=== PATIENT | male | born 1955 | race Hispanic/Latino ===

== ENCOUNTER 2024-07-30 09:47 | Day surgery (SDC) | payer MEDICARE ==
[2024-07-30] VITALS (11 sets, daily range): BP systolic 108–153; BP diastolic 56–75; PULSE 59–71; RESP 15–17; TEMP 97.1–97.6
[~2024-07-30] VITALS: Ht 162.6 cm; Wt 67.1 kg
[2024-07-30] MEDS: 0.9%NACL 1000ML 1,000 ML IV ONE (12:54)
[2024-07-30] MEDS ORDERED: FURO20TA4 PO (13:07)
[2024-07-30] MEDS ORDERED: FOLI1 PO (13:07)
[2024-07-30] MEDS ORDERED: METF-446 PO (13:07)
[2024-07-30] MEDS ORDERED: RIFA550T PO (13:07)
[2024-07-30] MEDS ORDERED: PANT40TA54 PO (13:07)
[2024-07-30] MEDS ORDERED: ATOR40TA69 PO (13:07)
[2024-07-30] MEDS ORDERED: LACT10SO76 PO (13:07)
[2024-07-30] MEDS ORDERED: PIOG30TA70 PO (13:07)
[2024-07-30] MEDS ORDERED: TAMS-1 PO (13:07)
[2024-07-30] MEDS ORDERED: SPIR50TA PO (13:07)
[2024-07-30] MEDS ORDERED: FENTanyl CITRate PF 50 MCG/1 ML 2ML VIAL ONE (13:14)
[2024-07-30] MEDS ORDERED: LIDOCAINE HCL 1% 20 ML VIAL ONE (13:15)
[2024-07-30] MEDS ORDERED: proPOFol 10 MG/ML 20ML VIAL IV ONE ×2 (13:15→13:24)
== END 2024-07-30 14:40 | disposition home or self-care (01) ==
LOC: DAH 09:47 → ENDO 09:47
PROVIDERS: ATTEND Internal Medicine Gastroenterology
DX: K74.60 Unspecified cirrhosis of liver (principal); I85.10 Secondary esophageal varices without bleeding; K31.89 Other diseases of stomach and duodenum; K76.6 Portal hypertension; E11.9 Type 2 diabetes mellitus without complications; K21.9 Gastro-esophageal reflux disease without esophagitis; E66.01 Morbid (severe) obesity due to excess calories; K57.30 Diverticulosis of large intestine without perforation or abscess without bleeding; K80.20 Calculus of gallbladder without cholecystitis without obstruction; Z79.899 Other long term (current) drug therapy
CPT/HCPCS: 43244; J3010; J7030 ×2; J2704 ×2; A4620; A4215 ×2; A4223; A4657; A7002; A4222; A4221; A4663; A4606; J3490

== ENCOUNTER 2024-10-28 08:00 | Day surgery (SDC) | payer MEDICARE, MEDICAID ==
[~2024-10-28] VITALS: Ht 162.6 cm; Wt 70.3 kg
[2024-10-28] VITALS (10 sets, daily range): BP systolic 100–131; BP diastolic 52–69; PULSE 55–66; RESP 15–17; TEMP 97–97.7
[~2024-10-28 08:00] MED LIST: ATOR40TA69 PO; FOLI1 PO; FURO20TA4 PO; LACT10SO76 PO; METF-446 PO; PANT40TA54 PO; RIFA550T PO; SPIR50TA PO; TAMS-55 PO
[2024-10-28] MEDS ORDERED: PANT40TA54 PO (09:47)
[2024-10-28] MEDS: 0.9%NACL 1000ML 1,000 ML IV ONE (09:53)
[2024-10-28] MEDS: DEXTROSE 50%-WATER 50 ML DISP.SYRIN IV ONE (09:54)
[2024-10-28] MEDS ORDERED: proPOFol 10 MG/ML 20ML VIAL IV ONE (11:53)
== END 2024-10-28 12:50 | disposition home or self-care (01) ==
LOC: ENDO 08:00 → DAH 08:00 → ENDO 12:50
PROVIDERS: ATTEND Internal Medicine Gastroenterology
DX: I85.00 Esophageal varices without bleeding (principal); K22.89 Other specified disease of esophagus; K76.6 Portal hypertension; K31.89 Other diseases of stomach and duodenum; K74.60 Unspecified cirrhosis of liver; E11.9 Type 2 diabetes mellitus without complications; E78.5 Hyperlipidemia, unspecified; Z79.899 Other long term (current) drug therapy
CPT/HCPCS: 82948 ×3; 43244; J7030; J7070; J2704; A4620; A4215 ×2; A4223; A4222; A4221; A4663; A4606; J3490

== ENCOUNTER 2024-12-08 08:06 | Day surgery (SDC) | payer MEDICARE, MEDICAID ==
[~2024-12-08] VITALS: Ht 162.6 cm; Wt 69.4 kg
[2024-12-08] VITALS (12 sets, daily range): BP systolic 89–127; BP diastolic 48–61; PULSE 58–64; RESP 14–17; TEMP 97.6–98.1
[~2024-12-08 08:06] MED LIST changes: -ATOR40TA69 PO; -FOLI1 PO
[2024-12-08] MEDS ORDERED: ERGO500093 PO (09:34)
[2024-12-08] MEDS ORDERED: FOLI0.8C PO (09:34)
[2024-12-08] MEDS: 0.9%NACL 1000ML 1,000 ML IV ONE (09:36)
[2024-12-08] MEDS ORDERED: LIDOCAINE HCL 1% 20 ML VIAL ONE (10:25)
== END 2024-12-08 11:52 | disposition home or self-care (01) ==
LOC: DAH 08:06 → ENDO 08:06
PROVIDERS: ATTEND Internal Medicine Gastroenterology
DX: K76.6 Portal hypertension (principal); I85.10 Secondary esophageal varices without bleeding; K74.60 Unspecified cirrhosis of liver; K22.89 Other specified disease of esophagus; K31.89 Other diseases of stomach and duodenum; K76.82 Hepatic encephalopathy; R12 Heartburn; K57.30 Diverticulosis of large intestine without perforation or abscess without bleeding; K80.20 Calculus of gallbladder without cholecystitis without obstruction; I10 Essential (primary) hypertension; E11.9 Type 2 diabetes mellitus without complications; E78.5 Hyperlipidemia, unspecified; Z79.84 Long term (current) use of oral hypoglycemic drugs; Z79.899 Other long term (current) drug therapy
CPT/HCPCS: 43235; 82948 ×2; J7030; J2704; A4620; A4215 ×2; A4223; A4222; A4221; A4663; A4606; J3490